=== PATIENT | female | born 1965 | race Caucasian/White ===

== ENCOUNTER 2017-09-10 06:46 | Inpatient (IN) | payer OTHER ==
[2017-09-07 16:49] LABS: ABSOLUTE EOSINOPHILS 0.1 thou/uL (0.0-0.7); ABSOLUTE LYMPHOCYTES 2.4 thou/uL (0.8-5.3); ABSOLUTE MONOCYTES 0.6 thou/uL (0.0-1.2); ABSOLUTE NEUTROPHILS 5.6 thou/uL (1.6-8.1); BASOPHILS 0.4 %; EOSINOPHILS 1.4 %; HEMATOCRIT 38.3 % (37.0-47.0); HEMOGLOBIN 13.2 gm/dL (12.0-15.0); LYMPHOCYTES 27.2 %; MCH 30.8 pg (26.0-34.0); MCHC 34.3 g/dL (28.0-37.0); MCV 89.7 fL (80.0-100.0); MONOCYTES 6.5 %; MPV 7.7 fl. (7.2-11.1); NUCLEATED RBCS 0 /100WBC; PLATELET COUNT* 292 thou/uL (150-400); POLYS 64.5 %; RBC 4.27 mil/uL (4.20-5.00); RDW-CV 13.3 % (10.5-14.5); WBC 8.7 thou/uL (4.0-11.0)
[2017-09-07 16:53] LABS: APTT 25.4 Seconds (25.0-31.3); INR 1.1; PROTIME 10.3 Seconds (9.20-11.50)
[2017-09-07 16:59] LABS: CALCIUM 8.8 mg/dL (8.5-10.1); POTASSIUM 3.8 mmol/L (3.5-5.1); TOTAL BILIRUBIN 0.3 mg/dL (<0.1-1.0); TOTAL PROTEIN 7.4 g/dL (6.4-8.2)
[2017-09-07 18:04] LABS: ESR (SEDRATE) 10 mm/hr (0-30)
--- NOTE | 2017-09-07 18:19 | EKG ---
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
[2017-09-08 03:11] LABS: GLYCOHEMOGLOBIN (HGB A1C) 5.5 % (4.8-5.6)
[~2017-09-10] VITALS: Ht 25.4 cm; Wt 99.8 kg
[~2017-09-10 06:46] MED LIST: DIVIGEL1 EAC1; MAXALT MLT10 MG PO; VITAMINC500 PO
[2017-09-10 14:00] VITALS: BP 112/62
--- NOTE | 2017-09-10 14:35 | NUR ---
RECEIVED PT FROM SURGERY FOR RT. KNEE DJD/TKR. PT A&O X4, HRRR, LCTAB, VSS ON 2L O2 NC, NOT USED AT HOME. HEMO VAC ON RIGHT KNEE, PATENT, POLAR PACK IN PLACE ON RIGHT KNEE. FALL RISKS PRECAUTIONS IN PLACE. FAMILY AT BEDSIDE. PERRLA, AFEBRILE. CONSULTS DR. SRIVASTAVA ORTHO SURGERY, OT, PT, RT. FALL RISK ARM BAND, ALLERGY ARM BAND AND UNIT ID BAND IN PLACE. REGULAR DIET. HOURLY ROUNDING TO BEGIN. WILL MONITOR PT FOR PAIN/DISCOMFORT, PROGRESS AND STATUS.
--- NOTE | 2017-09-10 14:41 | NUR ---
PT ARRIVED TO ORTHO FLOOR AT 1400.
[2017-09-10 16:00] VITALS: BP 121/60
--- NOTE | 2017-09-10 19:02 | NUR ---
BEDSIDE REPORT TO HAMMER ADJUSTER FOR CONTINUE OF CARES. PT REMAINS STABLE, PAIN STILL PRESENT AND SOMEWHAT DIFFICULT TO CONTROL. PT USED BEDPAN FOR CLEAR YELLOW URINE. DRAIN IN RIGHT KNEE PATENT WITH RED BLOOD PRESENT. POLAR PACK ON AND ACTIVE. FAMILY AT BEDSIDE, VSS. BEDREST. HOURLY ROUNDS COMPLETED.
[2017-09-10 23:09] VITALS: BP 118/62
[2017-09-11 04:00] VITALS: BP 97/57
--- NOTE | 2017-09-11 04:04 | NUR ---
patient arrived on unit at approx 0310. Patient alert and oriented times 4. IV in RAC patent to fluids infusing. 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 casework specialist assessment completed as charted. Patient settled in and comfortable at this time. Understands call light and fall risk. Refused SCD's. Will continue to monitor.
[2017-09-11 04:28] LABS: HEMATOCRIT 34.4 % (37.0-47.0); HEMOGLOBIN 11.6 gm/dL (12.0-15.0)
--- NOTE | 2017-09-11 06:31 | NUR ---
PATIENT REMAINED STABLE THROUGH SHIFT. MINOR COMPLAINTS OF PAIN NOTED. CONTROLLED WITH ORAL PAIN MEDICATIONS. COMPLIANT WITH USE OF CPM THIS MORNING. HOURLY ROUNDING COMPLETED DOCUMENTED.
--- NOTE | 2017-09-11 07:40 | OP ---
[address] [address] OPERATIVE REPORT Name: NATTY TERRY Room: [address] IN [facility]#: [id number] Admission: 09/10/17 Attend Phys: Genevieve Andrews Discharge: Date of : 69 Report #: [id number] THIS REPORT FOR: //name// CC: Brianda Mcleod DICTATED BY: Chance Evans DO DATE OF SERVICE: 09/10/2017 DICTATED BY: Dr. Chance Brandt dictating operative note for Dr. Jarvis Hussein. PREOPERATIVE DIAGNOSIS: Advanced degenerative joint disease, right knee. POSTOPERATIVE DIAGNOSIS: Advanced degenerative joint disease, right knee. PROCEDURE PERFORMED: Right total knee arthroplasty. PRIMARY SURGEON: Jarvis Hussein DO. NETWORK SUPPORT MANAGER: Chance Evans DO. SECOND BUSINESS SERVICES ADMINISTRATOR: David Kuhn DO. ANESTHESIA: General with local and IV regional. ESTIMATED BLOOD LOSS: 100 mL. SPECIMENS: None. COMPLICATIONS: None. TOURNIQUET: 76 minutes, 300. ANTIBIOTICS: Two grams Ancef preoperatively. IMPLANTS: MicroPort VPS Evolution size 6 femur, MVPS size 6 tibial baseplate, a 10-mm posterior stabilized polyethylene insert and a 35-mm Tri-peg patella. INDICATIONS: The patient is a 52-year-old female that has been seen in our clinic multiple times regarding her right knee pain. 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 She underwent prior arthroscopy, but has continued to have pain and dysfunction since that time. She presents today for the [address] [address] OPERATIVE REPORT Name: NATTY TERRY Room: [address] IN [facility].#: [id number] Admission: 09/10/17 Attend Phys: Genevieve Andrews Discharge: Date of : 69 Report #: [id number] above-mentioned procedure. Risks, benefits, complications and alternatives of surgery have been discussed and she is wishing to proceed. DESCRIPTION OF PROCEDURE: The patient was taken to the OR suite, placed supine on the OR table and given the benefit of general anesthetic. A well-padded tourniquet was placed on the right upper thigh. She was prepped and draped in the usual sterile fashion. Prior to procedure, timeout was taken confirming correct site, patient and procedure and procedure began. Midline incision over the right knee. Dissection was carried down to the level of the joint capsule. A second knife was used to perform a medial parapatellar arthrotomy. Upon arthrotomy, the patient was found to have a large full-thickness chondral lesion covering the entire surface of her medial femora condyle. No signs of infection and normal-appearing joint fluid. The patella was everted of excess fat pad. ACL and PCL anterior horns of the menisci were removed. Drill was used to access the femoral canal. Intramedullary guide douglas was placed down the femoral shaft, tip in our distal femoral cutting block. This was set for 12 mm of resection and 5 degrees valgus. The block was pinned in place and distal femoral cut was made. We then proceeded to size the femur. This was measured as a size 6. Issa wing was used to assure no notching. The 4-in-1 cutting block was pinned in place and these cuts were made as well. Please note retractors were placed at all times to protect all vital structures. The notch cut was performed using a reciprocating saw and the cutting guide. This was appropriately pinned in place and this bone wedge was removed. We then directed our attention to the tibia. The proximal tibia was fully exposed. PCL retractor was inserted. Extramedullary guide douglas was used to pin in place our proximal tibia cutting block. This was pinned in place in line with the mechanical axis of the tibia, referencing the medial third tibial tubercle and the mid talus. This was measured 2 mm from the low side, which was medial. Cut was checked with Issa wing. Once again, retractors were placed to protect all vital structures. Our tibial cut bone was removed. The leg was brought into extension. A 10-mm spacer block was inserted to check our cuts. This was well balanced and appropriate resection had been taken. We then proceeded to remove the remaining excess menisci in the medial lateral horns and posterior horns. Next, a trial tibia was pinned in place. This was measuring a size 6, once again referencing the medial third tibial tubercle and mid talus. A drop douglas was used to rotation. Trial femur was placed followed by a 10-mm insert. The knee was taken through range of motion and found to be very stable in flexion and extension. We then addressed the patella. This was resurfaced using a free hand cut and measured a size 35. The patellar button PEG was placed and this was tracking nicely through range of motion. All implants were then removed. The proximal tibia was prepared using a reamer and keel punch. Knee was thoroughly irrigated [address] [address] OPERATIVE REPORT Name: NATTY TERRY Room: [address]#: [id number] Admission: 09/10/17 Attend Phys: Genevieve Andrews Discharge: Date of : 69 Report #: [id number] while cement was mixed on the back table. Final implants were placed beginning with the tibial tray, followed by the femur plate. A 12-mm spacer was used for compression and then the patella was placed. All excess cement was removed. Once the cement had adequately hardened, knee was trialed in the range of motion with a 12 and 10-mm poly. The 10 mm provided the appropriate amount of stability and allowed full range of motion, as it was felt the 12 mm was too tight. The knee was thoroughly irrigated. The final 10-mm posterior stabilized insert was placed. Knee was again taken through range of motion and the patella was found to be tracking well and well balanced. We placed IV TXA and a posterior capsular block was performed. Tourniquet was let down with a total time of 76 minutes. Hemostasis was obtained. Capsule was closed with interrupted #1 Vicryl, followed by 2-0 Vicryl subcuticular for skin and a running 3-0 Stratafix. Dermabond glue for skin and sterile dressing was applied. The patient tolerated the procedure well and was transferred to PACU in good stable condition. All sponge and needle counts correct x 2. <ELECTRONICALLY SIGNED> By: Yfn Meadows DO 09/11/17 [address] [place], [place] [address]bib Hussein DO /nt
--- NOTE | 2017-09-11 07:52 | NUR ---
KNEE PT REFERRED TO PHYSICAL THERAPY AT THIS TIME. PLEASE CONSULT OT IF THERE IS A CHANGE IN STATUS.
[2017-09-11 08:00] VITALS: BP 107/44
[2017-09-11 16:27] VITALS: BP 130/61
--- NOTE | 2017-09-11 20:15 | NUR ---
I ASSUMED CARE OF THE PATIENT AT 1445. SHE REQUESTED A DIFFERENT POWER PLANT MECHANIC. HOURLY ROUNDING WAS DONE AND PATIENT NEEDS WERE MET. BED IS IN THE LOW LOCKED POSITION AND CALL LIGHT IS IN REACH. I AGREE WITH PRIOR NURSES ASSESSMENT. PAIN IS BEING CONTROLLED WITH PRN MEDS AFTER BLOCK WORE OFF. PATIENT TOLERATES THE CPM WELL. ISOLATION WAS MAINTAINED. SHE URINATES IN THE BEDSIDE COMMODE AND HAD A BM ON 09/10/17. IV WORKS WELL AND CONTINUOUS FLUIDS ARE INFUSING. SHITAL HOSE ARE ON AND SHE AGREES TO WEAR FOOT PUMPS/SCD'S AT BEDTIME. SHE IS PROGRESSING TOWARD GOALS. WILL CONTINUE TO MONITOR.
[2017-09-11 20:20] VITALS: BP 120/57
[2017-09-11 23:48] VITALS: BP 133/69
[2017-09-12 04:03] VITALS: BP 122/55
[2017-09-12 04:30] LABS: HEMOGLOBIN 10.6 gm/dL (12.0-15.0)
--- NOTE | 2017-09-12 08:12 | NUR ---
ALERT AND ORIENTED X4. UP WITH 1 ASSIST, GAIT BELT AND WALKER. PAIN IMPROVING. IV PAIN MEDICATION X1 GIVEN AND VERY HELPFUL, NOW PATIENT CURRENTLY USING PO PAIN MEDICATION TO CONTROL PAIN. CURRENTLY IN CPM AT 50. VOIDING WITHOUT DIFFICULTY. IVF INFUSING WITHOUT DIFFICULTY. DRESSING CLEAN DRY AND INTACT. BED ALARM ON AND CALL LIGHT WITHIN REACH.
[2017-09-12 08:15] VITALS: BP 126/65
[2017-09-12] MEDS ORDERED: COLACE 100 MG100 MG PO (10:09)
--- NOTE | 2017-09-12 11:44 | NUR ---
SPOKE WITH PT. SHE WAS ALERT AND ORIENTED. SHE SAID HER OR TEENAGE CHILDREN WILL BE WITH HER AT HOME. HER KIDS ARE ON SPRING BREAK. SHE WILL NEED A WALKER. DISCUSSED HOME HEALTH VS.OUTPT. SHE STILL WANTS TO DO OUTPT.THERAPY. HER FRIEND TOLD HER ABOUT [facility] OUTPT.THERAPY. WILL GIVE HER COPY OF HER ORDERS AND PHONE NUMBER TO CALL ON THURSDAY. CM CALLED IN [employer] WRITTEN TO PT'S PHARMACY AND COPAY IS $192. SHE SAID THAT WAS FINE. SHE IS NORMALLY INDEPENDENT AT HOME AND WORKS OUTSIDE THE HOME.
[2017-09-12 12:21] VITALS: BP 126/65
[2017-09-12 12:41] VITALS: BP 126/65
[2017-09-12] MEDS ORDERED: HYDROCODONE-AP1 EAC6 PO (13:05)
[2017-09-12] MEDS ORDERED: OXYCODONE HCL 55 MG PO (13:05)
[2017-09-12] MEDS ORDERED: ELIQUIS2.5 MG PO (13:06)
[2017-09-12] MEDS ORDERED: ASPIRIN325 PO (13:12)
[2017-09-12 15:45] VITALS: BP 126/65
--- NOTE | 2017-09-12 16:08 | NUR ---
PATIENT ALERT AND ORIENTED THROUGHOUT SHIFT. FALL PRECAUTIONS IN PLACE THROUGHOUT DAY. VITAL SIGNS STABLE ON ROOM AIR. PATIENT WORKED WITH THERAPY TWICE BEFORE DISCHARGE. PAIN WAS MAINTAINED THROUGHOUT SHIFT WITH ORAL PAIN MEDICATION. PATIENT AMBULATED WITH ASSIST OF ONE. IV WAS DISCONTINUED BEFORE DISCHARGE. PATIENT LEFT UNIT AT 1545 WITH SPOUSE. ALL BELONGINGS SENT WITH PATIENT.
--- NOTE | 2017-09-14 10:55 | S ---
[place] [address] SURGICAL PATH RPT PROCEDURE Name: NATTY DEE Room: [address] IN [facility]#: [id number] Admission: 09/10/17 Date of : 69 Discharge: 09/12/17 Report #: [id number] Path Case #: [id number] PATHOLOGY REPORT COLLECTION DATE: 09/10/2017 RECEIVED DATE: 09/10/2017 SUBMITTING PHYS: Dr. Jarvis Hussein OTHER PHYS: Dr. Cuco Tamayo SPECIMEN(S) RECEIVED: A.R knee bone and tissue * * * * * * * * * * * * FINAL DIAGNOSIS: Right knee bone and tissue, total knee replacement: - Benign meniscus and fibrofatty/synovial tissue and benign bone and cartilage with severe degenerative changes. (ROOPA:pit; 09/14/2017) PATHOLOGIST: Siddhartha Beverly M.D. REPORT ELECTRONICALLY SIGNED BY: Siddhartha Beverly M.D. DATE/TIME: 09/14/2017 10:54 * * * * * * * * * * * * GROSS PATHOLOGY: Received in formalin labeled "Kosta Dee right knee bone and tissue" are multiple portions of brannon-white bone which measure in aggregate 17.2 x 12.0 x 2.3 cm. Seven of the bone portions have brannon-white, cartilaginous-covered articular surfaces, with roughened areas of eburnation covering 30% of the surfaces. A significant area of eburnation measuring the 2.2 x 1.1 cm, and 0.2 cm in depth, is identified on one of the portions. The remaining surfaces are smooth and grossly consistent with surgical resection margins. Also present within the container are multiple portions of yellow-brannon lobulated soft tissue and brannon-white rubbery and membranous soft tissue which measure in aggregate 7.2 x 6.3 x 1.3 cm. Building Maintenance Custodian sections of the specimen including the significant area of eburnation are submitted in cassette A1 following decalcification. ([facility] [place] 09/10/[place]) CLINICAL HISTORY: Right knee degenerative joint disease. INITIAL CPT CODE(S): A; [address], [address] [place] [address] SURGICAL PATH RPT PROCEDURE Name: NATTY DEE Room: [address]#: [id number] Admission: 09/10/17 Date of : 69 Discharge: 09/12/17 Report #: [id number] Path Case #: [id number] Professional services performed by [facility] at [address] [address] Technical services performed by [facility] at [address] [place] [address], [address], [place] [address]. [facility] [address] [address] PHONE: [phone] DIRECTOR: Pierre Maria M.D. * * * END OF REPORT * * *
== END 2017-09-12 15:45 | disposition home or self-care (01) | DRG 470 ==
LOC: M.PRE 06:46 → M.TBA 09:18 → M.PRE 09:31 → M.SUR 10:46 → EDSTATUS 10:46 → M.PRE 10:51 → M.ORTHSURG 14:12
PROVIDERS: Orthopaedic Surgery; ADMIT Internal Medicine
PROC: 0SRC0J9 Replacement of Right Knee Joint with Synthetic Substitute, Cemented, Open Approach (ICD-10-PCS; principal; 2017-09-10)
DX: M17.11 Unilateral primary osteoarthritis, right knee (principal); D62 Acute posthemorrhagic anemia; G43.909 Migraine, unspecified, not intractable, without status migrainosus; Z90.710 Acquired absence of both cervix and uterus; Z79.899 Other long term (current) drug therapy